=== PATIENT | female | born 1965 | race Caucasian/White ===

== ENCOUNTER 2023-05-27 12:05 | Emergency (ER) | payer BC ==
[~2023-05-27] VITALS: Ht 157.5 cm; Wt 59.0 kg
[2023-05-27 12:24] VITALS: BP_SYST 117; PULSE 80; RESP 18; TEMP 98; O2SAT 100
--- NOTE | 2023-05-27 14:40 | NUR ---
DR WEEKS TRIAGE FOR EXAM
[2023-05-27] MEDS ORDERED: OXYCODONE/ACETAMINOPHEN 5-325 TABLET PO ONE (15:00)
[2023-05-27] MEDS ORDERED: KETOROLAC TROMETHAMINE 30 MG VIAL IM ONE (15:00)
--- NOTE | 2023-05-27 16:40 | NUR ---
PT GIVEN TORADOL IM IN TRIAGE, PERCOCET HELD BECAUSE PT WAS ONLY IN TRIAGE IN CHAIR. DR WEEKS MADE AWARE THAT MEDICATION WAS NOT GIVEN.
[2023-05-27] MEDS ORDERED: FURO-150 PO (16:55)
[2023-05-27] MEDS ORDERED: NAPR-1172 PO (16:55)
[2023-05-27] MEDS ORDERED: OXYC-128 PO (17:00)
--- NOTE | 2023-05-27 17:43 | NUR ---
Patient given written and verbal discharge instructions and verbalizes understanding. ER MD discussed with patient the results and treatment provided. Patient in stable condition. ID arm band removed. Rx of LASIX, NAPROXYN, PERCOCET given. Patient educated on pain management and to follow up with PMD. Pain Scale . Opportunity for questions provided and answered. Medication side effect fact sheet provided.
[2023-05-27 17:54] VITALS: BP_SYST 117; PULSE 80; RESP 18; TEMP 98; O2SAT 100
== END 2023-05-27 17:54 | disposition home or self-care (01) ==
LOC: SED 12:05
DX: R60.0 Localized edema (principal); M13.0 Polyarthritis, unspecified; G89.18 Other acute postprocedural pain; M79.662 Pain in left lower leg; I10 Essential (primary) hypertension; Z79.899 Other long term (current) drug therapy
CPT/HCPCS: 99285; 93970; 96372; J1885